=== PATIENT | female | born 1955 | race American Indian/Alaskan Native ===

== ENCOUNTER 2021-11-01 08:44 | Emergency (ER) | payer MEDICAID ==
--- NOTE | 2021-11-01 08:47 | Emergency Department Report ---
ED Altered Mental Status HPI - General Stated Complaint: ALTERED MENTAL STATUS Time Seen by Provider: 11/01/21 08:46 - History of Present Illness Initial Comments: Patient was brought in by EMS due to altered mental status. History is obtained from EMS as the patient is altered and cannot provide a cogent history. Patient came in from a longterm. Reportedly, the patient was at her baseline at bedtime and last evening sometime. Exact time is not known. This morning, the longterm staff found the patient confused and altered. She was reportedly nonverbal. She allegedly had a fever with hypoxia. Patient was transported here. EMS did not find the patient to be hypoxic. They did not state that the patient felt warm. She was nonverbal and noninteractive with them. There was no history of recent travel or trauma. Patient had a prior stroke. Again, history is not obtained from the patient as she is altered. - Related Data Previous Rx's Medication Instructions Recorded Last Taken Type cephALEXin [Keflex] 500 mg PO Q6HR #28 capsule 11/01/21 Unknown Rx Allergies Allergy/AdvReac Type Severity Reaction Status Date / Time No Known Allergies Allergy Verified 11/01/21 08:50 ED Review of Systems ROS: Stated complaint: ALTERED MENTAL STATUS Other details as noted in HPI Comment: Unobtainable due to pts medical conditions (Altered mental status) ED Past Medical Hx - Past Medical History Additional medical history: Cannot be obtained for the patient secondary to altered mental status. Based on longterm records, patient has had a prior stroke as well as seizure. - Surgical History Additional Surgical History: Cannot be obtained for the patient secondary to altered mental status - Family History Family history: other (Cannot be obtained for the patient secondary to altered mental status) - Social History Substance Use Type: Other (Cannot be obtained for the patient secondary to al tered mental status) - Medications Home Medications: Home Medications Medication Instructions Recorded Confirmed Last Taken Type cephALEXin [Keflex] 500 mg PO Q6HR #28 capsule 11/01/21 Unknown Rx ED Physical Exam - General Limitations: Altered Mental Status (Patient simply answers left repeatedly to any question asked. She will only follow simple commands periodically.), Other (Pulse ox Per EMS noted and normal.) General appearance: alert, in no apparent distress, other (She is listing to the right) - Head Head exam: Present: atraumatic, normocephalic - Eye Eye exam: Present: normal appearance, EOMI. Absent: scleral icterus - ENT ENT exam: Present: mucous membranes dry, normal external ear exam - Neck Neck exam: Present: normal inspection. Absent: lymphadenopathy - Respiratory Respiratory exam: Present: rhonchi. Absent: respiratory distress - Cardiovascular Cardiovascular Exam: Present: regular rate, normal rhythm - GI/Abdominal GI/Abdominal exam: Present: soft. Absent: distended, pulsatile mass - Extremities Exam Extremities exam: Present: normal capillary refill - Back Exam Back exam: Absent: CVA tenderness (R), CVA tenderness (L) - Neurological Exam Neurological exam: Present: alert, altered, other (Left hemiparesis consistent with prior stroke) - Psychiatric Psychiatric exam: Present: flat affect - Skin Skin exam: Present: warm, dry ED Course Vital Signs 11/01/21 11/01/21 11/01/21 08:48 11:09 13:00 Temperature 97.8 F 98.2 F Pulse Rate 80 90 Respiratory 16 16 Rate Blood Pressure 177/88 160/101 [Right] O2 Sat by Pulse 94 95 100 Oximetry - Reevaluation(s) Reevaluation #1: 11/01/21 08:47 EMS was met on arrival. IV and labs were ordered. Old records reviewed. Reevaluation #2: 11/01/21 14:53 Work-up was ultimately complete and the patient was discharged with antibiotics. - Lab Data Result diagrams: 11/01/21 09:30 11/01/21 09:30 Lab Results 11/01/21 11/01/21 11/01/21 Range/Units 09:30 09:30 09:30 WBC 13.8 H (4.5-11.0) K/mm3 RBC 5.71 H (3.65-5.03) M/mm3 Hgb 14.4 H (10.1-14.3) gm/dl Hct 46.6 H (30.3-42.9) % MCV 82 (79-97) fl MCH 25 L (28-32) pg MCHC 31 (30-34) % RDW 15.7 H (13.2-15.2) % Plt Count 364 (140-440) K/mm3 Lymph % (Auto) 21.2 (13.4-35.0) % Bay % (Auto) 5.7 (0.0-7.3) % Eos % (Auto) 0.0 (0.0-4.3) % Baso % (Auto) 0.6 (0.0-1.8) % Lymph # (Auto) 2.9 (1.2-5.4) K/mm3 [place] # (Auto) 0.8 (0.0-0.8) K/mm3 Eos # (Auto) 0.0 (0.0-0.4) K/mm3 Baso # (Auto) 0.1 (0.0-0.1) K/mm3 Seg Neutrophils % 72.5 H (40.0-70.0) % Seg Neutrophils # 10.0 H (1.8-7.7) K/mm3 Sodium 134 L (137-145) mmol/L Potassium 4.8 (3.6-5.0) mmol/L Chloride 99.9 (98-107) mmol/L Carbon Dioxide 20 L (22-30) mmol/L Anion Gap 19 mmol/L BUN 17 (7-17) mg/dL Creatinine 0.8 (0.6-1.2) mg/dL Estimated GFR > 60 ml/min BUN/Creatinine Ratio 21 % Glucose 120 H (65-100) mg/dL Lactic Acid 1.30 (0.7-2.0) mmol/L Calcium 9.5 (8.4-10.2) mg/dL Total Bilirubin 0.70 (0.1-1.2) mg/dL AST 35 (5-40) units/L ALT 26 (7-56) units/L Alkaline Phosphatase 98 (35-129) units/L Total Protein 10.0 H (6.3-8.2) g/dL Albumin 3.8 L (3.9-5) g/dL Albumin/Globulin Ratio 0.6 % TSH (0.270-4.200) mlU/mL Urine Color (Yellow) Urine Turbidity (Clear) Urine pH (5.0-7.0) Ur Specific [place] (1.003-1.030) Urine Protein (Negative) mg/dL Urine Glucose (UA) (Negative) mg/dL Urine Ketones (Negative) mg/dL Urine Blood (Negative) Urine Nitrite (Negative) Urine Bilirubin (Negative) Urine Urobilinogen (<2.0) mg/dL Ur Leukocyte Esterase (Negative) Urine WBC (Auto) (0.0-6.0) /HPF Urine RBC (Auto) (0.0-6.0) /HPF U Epithel Cells (Auto) (0-13.0) /HPF Urine Bacteria (Auto) (Negative) /HPF Urine Mucus /HPF 11/01/21 11/01/21 Range/Units 09:30 13:01 WBC (4.5-11.0) K/mm3 RBC (3.65-5.03) M/mm3 Hgb (10.1-14.3) gm/dl Hct (30.3-42.9) % MCV (79-97) fl MCH (28-32) pg MCHC (30-34) % RDW (13.2-15.2) % Plt Count (140-440) K/mm3 Lymph % (Auto) (13.4-35.0) % [place] % (Auto) (0.0-7.3) % Eos % (Auto) (0.0-4.3) % Baso % (Auto) (0.0-1.8) % Lymph # (Auto) (1.2-5.4) K/mm3 [place] # (Auto) (0.0-0.8) K/mm3 Eos # (Auto) (0.0-0.4) K/mm3 Baso # (Auto) (0.0-0.1) K/mm3 Seg Neutrophils % (40.0-70.0) % Seg Neutrophils # (1.8-7.7) K/mm3 Sodium (137-145) mmol/L Potassium (3.6-5.0) mmol/L Chloride (98-107) mmol/L Carbon Dioxide (22-30) mmol/L Anion Gap mmol/L BUN (7-17) mg/dL Creatinine (0.6-1.2) mg/dL Estimated GFR ml/min BUN/Creatinine Ratio % Glucose (65-100) mg/dL Lactic Acid (0.7-2.0) mmol/L Calcium (8.4-10.2) mg/dL Total Bilirubin (0.1-1.2) mg/dL AST (5-40) units/L ALT (7-56) units/L Alkaline Phosphatase (35-129) units/L Total Protein (6.3-8.2) g/dL Albumin (3.9-5) g/dL Albumin/Globulin Ratio % TSH 0.681 (0.270-4.200) mlU/mL Urine Color [place] (Yellow) Urine Turbidity Cloudy (Clear) Urine pH 5.0 (5.0-7.0) Ur Specific [place] 1.037 H (1.003-1.030) Urine Protein >500 (Negative) mg/dL Urine Glucose (UA) Neg (Negative) mg/dL Urine Ketones Neg (Negative) mg/dL Urine Blood Sm (Negative) Urine Nitrite Neg (Negative) Urine Bilirubin Neg (Negative) Urine Urobilinogen 2.0 (<2.0) mg/dL Ur Leukocyte Esterase Neg (Negative) Urine WBC (Auto) 48.0 H (0.0-6.0) /HPF Urine RBC (Auto) 5.0 (0.0-6.0) /HPF U Epithel Cells (Auto) 2.0 (0-13.0) /HPF Urine Bacteria (Auto) 4+ (Negative) /HPF Urine Mucus 2+ /HPF - Medical Decision Making Patient presents with reports of altered mental status. She has been somewhat here. She does have evidence of urinary tract infection. She does not have any other vital sign instability suggestive of severe sepsis or septic shock. Patient has been treated symptomatically. She has been hydrated. She does have leukocytosis which would be consistent with her urinary tract infection. Patient is stable. assisted can provide antibiotics. I do not believe she requires medical admission for antibiotics as this can be treated as an outpatient. She has not failed outpatient treatment. Critical Care Time: No Critical care attestation.: If time is entered above; I have spent that time in minutes in the direct care of this critically ill patient, excluding procedure time. ED Disposition Clinical Impression: Confusion UTI (urinary tract infection) Qualifiers: Urinary tract infection type: site unspecified Hematuria presence: without hematuria Qualified Code(s): N39.0 - Urinary tract infection, site not specified Disposition: 03 [facility] Is pt being admited?: No Condition: Stable Instructions: Confusion, Urinary Tract Infection, Adult, [id number], Antibiotic Medicine, Adult Additional Instructions: Push fluids. take the antibiotics. see the regular doctor for recheck in 1-2 days. Prescriptions: cephALEXin [Keflex] 500 mg PO Q6HR #28 capsule Referrals: HARRISON COVARRUBIAS MD [Primary Care Provider] - 3-5 Days
[2021-11-01] MEDS ORDERED: SODIUM CHLORIDE 0.9% 1000 ML 1,000 ML IV ONE (09:00)
[2021-11-01 10:28] LABS: Basophils # (Auto) 0.1 K/mm3 (0.0-0.1); Basophils % (Auto) 0.6 % (0.0-1.8); Lymphocytes # (Auto) 2.9 K/mm3 (1.2-5.4); Lymphocytes % (Auto) 21.2 % (13.4-35.0); Mean Corpuscular HGB Conc 31 % (30-34); Mean Corpuscular Volume 82 fl (79-97); Monocytes # (Auto) 0.8 K/mm3 (0.0-0.8); Monocytes % (Auto) 5.7 % (0.0-7.3); Platelet Count 364 K/mm3 (140-440); Red Blood Count 5.71 M/mm3 (3.65-5.03); Red Cell Distribution Width 15.7 % (13.2-15.2)
[2021-11-01 10:32] LABS: Hematocrit 46.6 % (30.3-42.9); Hemoglobin 14.4 gm/dl (10.1-14.3)
[2021-11-01 10:49] LABS: Alanine Aminotransferase 26 units/L (7-56); Albumin 3.8 g/dL (3.9-5); BUN/Creatinine Ratio 21; Blood Urea Nitrogen 17 mg/dL (7-17); Calcium 9.5 mg/dL (8.4-10.2); Hemolysis Index 127
--- NOTE | 2021-11-01 11:13 | XRay Report ---
CHEST 1 VIEW 11/01/2021 10:07 AM INDICATION / CLINICAL INFORMATION: Altered mental status. COMPARISON: None available. FINDINGS: Patient is rotated. SUPPORT DEVICES: None. 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 No pneumothorax. ADDITIONAL FINDINGS: No significant additional findings. IMPRESSION: 1. No acute findings. Signer Name: Kendall Palacios MD Signed: 11/01/2021 11:08 AM Workstation Name: [id number]
[2021-11-01 13:01] VITALS: BP 160/101
[2021-11-01 13:20] LABS: Bacteria,Urine 4+ /HPF (Negative); Bilirubin,Urine NEG (Negative); Blood,Urine SM (Negative); Color,Urine Amber (Yellow); Mucus,Urine 2+ /HPF
[2021-11-01 13:21] LABS: Protein,Urine >500 mg/dL (Negative)
[2021-11-01] MEDS ORDERED: cefTRIAXone/NS 1 GM/50 ML 1 GM/50 ML BAG IV ONE (14:19)
--- NOTE | 2021-11-02 12:06 | Electrocardiograph Report ---
[facility] Test Date: 2021-11-01 Test Time: 11:18:34 Pat Name: ALYSE CERVANTES Department: Room: Gender: F Chief Design Drafter: DEVIN : 1955 Requested By: MERLIN KIM Order Number: [id number] Reading MD: Ruby Cesar Measurements Intervals [place] Rate: 69 P: 52 NM: 161 QRS: 36 QRSD: 105 T: 256 QT: 370 QTc: 395 Interpretive Statements Sinus rhythm Left ventricle hypertrophy with repolarization abnormalities of LVH No previous ECG available for comparison Electronically Signed On 11-02-2021 12:06:14 EST by Ruby Cesar
== END 2021-11-01 17:52 ==
LOC: ED 08:44
DX: R41.0 Disorientation, unspecified (principal); N39.0 Urinary tract infection, site not specified
CPT/HCPCS: 36415; 71045; 80053; 81001; 82140; 84443; 85025; 87086; 93005; 96361; 96365; 99284; J0696; J7030; Q0162

== ENCOUNTER 2021-12-27 14:35 | Emergency (ER) | payer MEDICAID ==
[2021-12-27] MEDS ORDERED: SODIUM CHLORIDE 0.9% 1000 ML 1,000 ML IV ONE (15:07)
--- NOTE | 2021-12-27 15:09 | Emergency Department Report ---
ED General Adult HPI - General Chief complaint: Medical Clearance Stated complaint: low blood pressure PUI?: No Time Seen by Provider: 12/27/21 14:46 Source: patient, EMS (Verbal report received from emergency medical services. EMS documentation not available at time of chart dictation ), RN notes reviewed, old records reviewed (intermediate records reviewed) Mode of arrival: Stretcher Limitations: Physical Limitation - History of Present Illness Initial comments: The patient was evaluated in the emergency department for symptoms described in the history of present illness. He/she was evaluated in the context of the [facility] COVID-19 pandemic, which necessitated consideration that the patient might be at risk for infection with the virus that causes COVID-19. Institutional protocols and algorithms that pertain to the evaluation of patients at risk for COVID-19 are in a state of rapid change based on information released by regulatory bodies including the CDC and federal and state organizations. These policies and algorithms were followed during the patient's care in the emergency department. Please note that these policies, procedures and recommendations changed on a rapid basis. Primary CARE doctor: Dr. Shay Baumann, Dr. 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 Current home medications include Keppra, multivitamin, aspirin, atorvastatin, Norvasc, Vimpat, Zofran, metoprolol The patient is a 66-year-old female who is referred to the emergency room by a local [facility] for evaluation of report of hypotension. As per enclosed n ursing home paperwork, patient had a blood pressure of 77/44, followed by blood pressure of 104/77. The patient denies physical pain. The patient denies all complaints. EMS reports that patient had normal vital signs in the field. -: This evening Improves with: none Worsens with: none Associated Symptoms: denies other symptoms - Related Data Previous Rx's Medication Instructions Recorded Last Taken Type cephALEXin [Keflex] 500 mg PO Q6HR #28 capsule 11/01/21 Unknown Rx Allergies Allergy/AdvReac Type Severity Reaction Status Date / Time No Known Allergies Allergy Verified 11/01/21 08:50 ED Review of Systems ROS: Stated complaint: low blood pressure Other details as noted in HPI Constitutional: denies: fever Eyes: denies: eye discharge ENT: denies: epistaxis Respiratory: denies: cough Cardiovascular: denies: chest pain Gastrointestinal: denies: abdominal pain, hematemesis, melena, hematochezia Genitourinary: denies: dysuria Neurological: weakness (Chronic weakness) ED Past Medical Hx - Past Medical History Previous Medical History?: Yes Hx CVA: Yes Hx Seizures: Yes Additional medical history: Cannot be obtained for the patient secondary to altered mental status. Based on [facility] records, patient has had a prior stroke as well as seizure. - Surgical History Additional Surgical History: Cannot be obtained for the patient secondary to altered mental status - Social History Substance Use Type: Other (Cannot be obtained for the patient secondary to altered mental status) - Medications Home Medications: Home Medications Medication Instructions Recorded Confirmed Last Taken Type cephALEXin [Keflex] 500 mg PO Q6HR #28 capsule 11/01/21 Unknown Rx ED Physical Exam - General Limitations: Physical Limitation (Right-sided hemiplegia), Other (Patient is a poor historian) General appearance: in no apparent distress - Head Head exam: Present: atraumatic, normocephalic - Eye Eye exam: Present: normal appearance, EOMI. Absent: nystagmus - ENT ENT exam: Present: normal exam, normal orophraynx, mucous membranes moist, normal external ear exam - Neck Neck exam: Present: normal inspection, full ROM. Absent: tenderness, men ingismus - Respiratory Respiratory exam: Present: decreased breath sounds. Absent: respiratory distress, wheezes, rales, rhonchi, stridor - Cardiovascular Cardiovascular Exam: Present: regular rate, normal rhythm, normal heart sounds. Absent: bradycardia, tachycardia, irregular rhythm, systolic murmur, diastolic murmur, rubs, gallop - GI/Abdominal GI/Abdominal exam: Present: soft. Absent: distended, tenderness, guarding, rebound, rigid, pulsatile mass - Rectal Rectal exam: Present: normal inspection, normal rectal tone, heme (-) stool, other (Chaperoned by standards engineer Haley). Absent: heme (+) stool - Extremities Exam Extremities exam: Present: normal inspection (Contraction noted in the right arm and right leg), full ROM (Left arm and left leg), other (2+ pulses noted in the bilateral upper and lower extremities. There is no palpable cord. negative Homans sign. Muscular compartments are soft. The pelvis is stable.). Absent: calf tenderness - Back Exam Back exam: Present: normal inspection. Absent: tenderness, CVA tenderness (R), CVA tenderness (L), paraspinal tenderness, vertebral tenderness - Neurological Exam Neurological exam: Present: other (There is no facial droop. The tongue is midline. EOMI. Hemiplegia right arm and right leg. Sensation intact to light touch left arm and left leg. 5/5 strength left arm and left leg.) - Psychiatric Psychiatric exam: Present: flat affect - Skin Skin exam: Present: warm, dry, intact, normal color. Absent: rash ED Course Vital Signs 12/27/21 12/27/21 12/27/21 14:37 16:59 21:03 Temperature 98.5 F 98.8 F Pulse Rate 70 83 Respiratory 16 16 18 Rate Blood Pressure Blood Pressure 148/88 131/92 150/92 [Left] O2 Sat by Pulse 97 100 99 Oximetry 12/28/21 12/28/21 12/28/21 01:00 02:52 02:54 Temperature 98.1 F 98.1 F Pulse Rate 77 77 Respiratory 14 14 14 Rate Blood Pressure 130/77 Blood Pressure 130/77 [Left] O2 Sat by Pulse 100 100 100 Oximetry 12/28/21 06:27 Temperature 98.1 F Pulse Rate 73 Respiratory 15 Rate Blood Pressure Blood Pressure 139/81 [Left] O2 Sat by Pulse 100 Oximetry - Reevaluation(s) Reevaluation #1: 12/27/21 18:54 Differential diagnosis, including but not limited to: Pneumonia, UTI, incorrect blood pressure reading, encounter for medical screening examination, referral from primary care doctor Assessment and plan: 66-year-old female, who was afebrile, with reassuring vital signs, referred to the emergency room because of a history of hypotension. Patient does not have hypotension here in the emergency room. She has brown stool that is guaiac negative. She has chronic right-sided hemiplegia. Her laboratory studies are unremarkable. Her chest x-ray is unremarkable. Her EKG is unremarkable. Urinalysis is pending at this time. While in the emergency room, patient was refusing parts of her care, including placement of IV for fluids. The patient is awake, but not alert, and she is not of sound mind and does not have decision-making capacity. Given that she is a [facility] resident with a history of hypotension, she was medicated with Geodon, to allow for placement of an IV, and administration of IV fluids. Since then, she has been pleasant and cooperative, not violent, combative or agitated, and not homicidal or suicidal. Most likely has vascular dementia. Thus far, vital signs have been stable and within normal/acceptable limits. Urinalysis is pending at this time. Care will be transferred to the oncoming ER provider to follow-up on urinalysis, and if positive for significant findings, initiate appropriate antimicrobial therapy. However, it would be reasonable to discharge this patient back to her [facility], with instructions to titrate/reevaluate her current antihypertensive medication regimen. Next para ED Medical Decision Making - Lab Data Result diagrams: 12/27/21 15:13 12/27/21 15:13 Vital Signs 12/27/21 12/27/21 14:37 16:59 Temperature 98.5 F Pulse Rate 70 Respiratory 16 16 Rate Blood Pressure 148/88 131/92 [Left] O2 Sat by Pulse 97 100 Oximetry Lab Results 12/27/21 12/27/21 12/27/21 Range/Units 15:13 15:13 15:13 WBC 11.9 H (4.5-11.0) K/mm3 RBC 4.81 (3.65-5.03) M/mm3 Hgb 12.8 (10.1-14.3) gm/dl Hct 39.3 (30.3-42.9) % MCV 82 (79-97) fl MCH 27 L (28-32) pg MCHC 33 (30-34) % RDW 15.7 H (13.2-15.2) % Plt Count 291 (140-440) K/mm3 Lymph % (Auto) 19.6 (13.4-35.0) % [place] % (Auto) 8.8 H (0.0-7.3) % Eos % (Auto) 1.1 (0.0-4.3) % Baso % (Auto) 0.3 (0.0-1.8) % Lymph # (Auto) 2.3 (1.2-5.4) K/mm3 [place] # (Auto) 1.0 H (0.0-0.8) K/mm3 Eos # (Auto) 0.1 (0.0-0.4) K/mm3 Baso # (Auto) 0.0 (0.0-0.1) K/mm3 Seg Neutrophils % 70.2 H (40.0-70.0) % Seg Neutrophils # 8.3 H (1.8-7.7) K/mm3 PT (12.2-14.9) Sec. INR (0.87-1.13) Sodium 141 (137-145) mmol/L Potassium 4.4 (3.6-5.0) mmol/L Chloride 107.4 H (98-107) mmol/L Carbon Dioxide 21 L (22-30) mmol/L Anion Gap 17 mmol/L BUN 12 (7-17) mg/dL Creatinine 0.9 (0.6-1.2) mg/dL Estimated GFR > 60 ml/min BUN/Creatinine Ratio 13 % Glucose 98 (65-100) mg/dL Calcium 9.2 (8.4-10.2) mg/dL Magnesium (1.7-2.3) mg/dL Total Bilirubin 0.40 (0.1-1.2) mg/dL AST 40 (5-40) units/L ALT 26 (7-56) units/L Alkaline Phosphatase 96 (35-129) units/L Total Creatine Kinase (30-135) units/L Troponin T < 0.010 (0.00-0.029) ng/mL Total Protein 8.5 H (6.3-8.2) g/dL Albumin 3.3 L (3.9-5) g/dL Albumin/Globulin Ratio 0.6 % TSH 1.880 (0.270-4.200) mlU/mL 12/27/21 12/27/21 Range/Units 15:13 15:13 WBC (4.5-11.0) K/mm3 RBC (3.65-5.03) M/mm3 Hgb (10.1-14.3) gm/dl Hct (30.3-42.9) % MCV (79-97) fl MCH (28-32) pg MCHC (30-34) % RDW (13.2-15.2) % Plt Count (140-440) K/mm3 Lymph % (Auto) (13.4-35.0) % [place] % (Auto) (0.0-7.3) % Eos % (Auto) (0.0-4.3) % Baso % (Auto) (0.0-1.8) % Lymph # (Auto) (1.2-5.4) K/mm3 [place] # (Auto) (0.0-0.8) K/mm3 Eos # (Auto) (0.0-0.4) K/mm3 Baso # (Auto) (0.0-0.1) K/mm3 Seg Neutrophils % (40.0-70.0) % Seg Neutrophils # (1.8-7.7) K/mm3 PT 13.6 (12.2-14.9) Sec. INR 0.94 (0.87-1.13) Sodium (137-145) mmol/L Potassium (3.6-5.0) mmol/L Chloride (98-107) mmol/L Carbon Dioxide (22-30) mmol/L Anion Gap mmol/L BUN (7-17) mg/dL Creatinine (0.6-1.2) mg/dL Estimated GFR ml/min BUN/Creatinine Ratio % Glucose (65-100) mg/dL Calcium (8.4-10.2) mg/dL Magnesium 2.20 (1.7-2.3) mg/dL Total Bilirubin (0.1-1.2) mg/dL AST (5-40) units/L ALT (7-56) units/L Alkaline Phosphatase (35-129) units/L Total Creatine Kinase 89 (30-135) units/L Troponin T (0.00-0.029) ng/mL Total Protein (6.3-8.2) g/dL Albumin (3.9-5) g/dL Albumin/Globulin Ratio % TSH (0.270-4.200) mlU/mL - EKG Data -: EKG Interpreted by Nh EKG shows normal: sinus rhythm Rate: normal - EKG Data 12/27/21 18:49 The EKG is interpreted at 15: 08 Sinus rhythm, rate 73 bpm. Normal axis, normal P wave axis, left ventricular hypertrophy, and motion artifact. Abnormal EKG. Not a STEMI - Radiology Data Radiology results: pending, report reviewed, image reviewed CHEST 1 VIEW 12/27/2021 3:26 PM INDICATION / CLINICAL INFORMATION: Weakness. COMPARISON: One view of the chest from 11/01/2021 FINDINGS: SUPPORT DEVICES: None. HEART / MEDIASTINUM: Stable. LUNGS / PLEURA: No significant pulmonary abnormality. No significant pleural effusion. No pneumothorax. ADDITIONAL FINDINGS: No significant additional findings. IMPRESSION: 1. No acute abnormality of the chest. Signer Name: Iron Oates MD Signed: 12/27/2021 3:02 PM Workstation Name: [id number] Critical care attestation.: If time is entered above; I have spent that time in minutes in the direct care of this critically ill patient, excluding procedure time. ED Disposition Clinical Impression: History of hypotension, History of stroke Disposition: 03 [facility] Is pt being admited?: No Does the pt Need Aspirin: No Condition: Good Additional Instructions: Laboratory studies today in the emergency room were unremarkable, in addition to x-ray of the chest. Please have your primary care doctor contact the medical record department to obtain copies of laboratory studies and radiology studies. Patient was not found to have hypotension or low blood pressure while here in the emergency room. Recommend that current treating physician reevaluate/reexamine current antihypertensive regimen, and consider downtrending current blood pressure medications. We do recommend follow-up with your outpatient primary care doctor within the next 5 days for repeat checkup and evaluation. Please return to the emergency room right away with new pain, worsened pain, migration of pain, projectile vomiting, change in mental status, confusion, inability tolerate liquid feeds, new, worsened or different symptoms not present on the initial emergency room evaluation Referrals: SHAY BAUMANN MD [Staff Physician] - 3-5 Days JESSIE PEARSON MD [Staff Physician] - 3-5 Days
[2021-12-27] MEDS ORDERED: ZIPRASIDONE MESYLATE 20 MG VIAL IM ONE (15:43)
--- NOTE | 2021-12-27 16:06 | XRay Report ---
CHEST 1 VIEW 12/27/2021 3:26 PM INDICATION / CLINICAL INFORMATION: Weakness. COMPARISON: One view of the chest from 11/01/2021 FINDINGS: SUPPORT DEVICES: None. HEART / MEDIASTINUM: Stable. LUNGS / PLEURA: No significant pulmonary abnormality. No significant pleural effusion. No pneumothora x. ADDITIONAL FINDINGS: No significant additional findings. IMPRESSION: 1. No acute abnormality of the chest. Signer Name: Iron Oates MD Signed: 12/27/2021 4:02 PM Workstation Name: [id number]
[2021-12-27 16:25] LABS: Basophils % (Auto) 0.3 % (0.0-1.8); Eosinophils # (Auto) 0.1 K/mm3 (0.0-0.4); Eosinophils % (Auto) 1.1 % (0.0-4.3); Hematocrit 39.3 % (30.3-42.9); Hemoglobin 12.8 gm/dl (10.1-14.3); Lymphocytes # (Auto) 2.3 K/mm3 (1.2-5.4); Lymphocytes % (Auto) 19.6 % (13.4-35.0); Mean Corpuscular HGB Conc 33 % (30-34); Mean Corpuscular Volume 82 fl (79-97); Monocytes % (Auto) 8.8 % (0.0-7.3); Platelet Count 291 K/mm3 (140-440); Red Blood Count 4.81 M/mm3 (3.65-5.03); Red Cell Distribution Width 15.7 % (13.2-15.2)
[2021-12-27 16:38] LABS: INR 0.94 (0.87-1.13)
[2021-12-27 17:33] LABS: Alanine Aminotransferase 26 units/L (7-56); Albumin 3.3 g/dL (3.9-5); BUN/Creatinine Ratio 13; Blood Urea Nitrogen 12 mg/dL (7-17); Calcium 9.2 mg/dL (8.4-10.2); Hemolysis Index 88
[2021-12-27 20:06] LABS: Bilirubin,Urine NEG (Negative); Blood,Urine SM (Negative); Color,Urine Straw (Yellow); Mucus,Urine FEW /HPF; Protein,Urine <15 mg/dL mg/dL (Negative); Urobilinogen,Urine < 2.0 mg/dL (<2.0)
[2021-12-28 06:28] VITALS: BP 139/81
--- NOTE | 2021-12-30 13:05 | Electrocardiograph Report ---
[facility] Test Date: 2021-12-27 Test Time: 15:08:49 Pat Name: ALYSE CERVANTES Department: Room: Gender: F Fbi Sharpshooter: TASHI : 1955 Requested By: ALONSO CARDOZA Order Number: [id number] Reading MD: Ruby Cesar Measurements Intervals [place] Rate: 73 P: 41 [place]: 173 QRS: 17 QRSD: 102 T: 31 QT: 370 QTc: 409 Interpretive Statements Sinus rhythm Probable LVH with secondary repol abnrm Compared to ECG 11/01/2021 11:18:34 No significant changes Electronically Signed On 12-30-2021 13:05:03 EST by Ruby Cesar
== END 2021-12-28 08:54 ==
LOC: ED 14:35
DX: I95.9 Hypotension, unspecified (principal); Z86.73 Personal history of transient ischemic attack (TIA), and cerebral infarction without residual deficits
CPT/HCPCS: 36415; 71045; 80053; 81001; 82550; 83735; 84443; 84484; 85025; 85610; 87086; 93005; 93010; 96360; 96361; 96372; 99285; J3486; J7030; Q0162